=== PATIENT | female | born 1955 | race American Indian/Alaskan Native ===

== ENCOUNTER 2018-10-06 17:53 | Emergency (ER) | payer BC ==
--- NOTE | 2018-10-06 18:23 | Emergency Department Report ---
Blank Doc - Documentation Documentation: This is a 62-year-old female that presents with left lateral paraspinal of cer vical spine and left shoulder. Also c/o of left hip and left thigh pain. Denies any injuries. Denies any head trauma. Denies any lower back pain. Denies any other symptoms or complaints. This initial assessment diagnostic orders/clinical plan/treatment(s) is/are subject to change based on patient's health status, clinical progression and re- assessment by fellow clinical providers in the ED. Further treatment and workup at subsequent clinical providers discretion. Patient/guardians urged not to elope from ED s their condition may be serious if not clinically assessed and managed. Initial orders include: 1-Patient sent to [facility] for further evaluation and treatment 2- xrays
[2018-10-06] MEDS ORDERED: IBUPROFEN PO ONE (18:31)
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
[2018-10-06] MEDS ORDERED: NORCO 5/325 PO ONE (21:46)
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
[2018-10-06 23:12] VITALS: BP 164/83
== END 2018-10-06 23:00 | disposition home or self-care (01) ==
LOC: ED 17:53
DX: S46.912A Strain of unspecified muscle, fascia and tendon at shoulder and upper arm level, left arm, initial encounter (principal); S76.012A Strain of muscle, fascia and tendon of left hip, initial encounter; I10 Essential (primary) hypertension; Z88.8 Allergy status to other drugs, medicaments and biological substances; V89.2XXA Person injured in unspecified motor-vehicle accident, traffic, initial encounter; Y93.89 Activity, other specified; Y99.8 Other external cause status; Y92.410 Unspecified street and highway as the place of occurrence of the external cause